=== PATIENT | male | born 1980 | race Caucasian/White ===

== ENCOUNTER 2019-09-16 15:41 | Emergency (ER) | payer BC ==
[2019-09-16 15:47] VITALS: BP 150/91
--- NOTE | 2019-09-16 16:08 | ED Physician Documentation ---
History of Present Illness - Stated complaint Stated Complaint: LT THUMB LAC - Chief complaint Chief Complaint: Laceration - History obtained from History obtained from: Patient - History of Present Illness Timing: Today Pain level max: 2 Pain level now: 1 Improved by: pressure Worsened by: moving - Additonal information Additional information: L thumb lac at home while making food. cut with knife. Td UTD. Patient is right- handed. Review of Systems Constitutional: denies: Fever Neurologic: denies: Focal weakness PD PAST MEDICAL HISTORY - Past Medical History Past Medical History: No - Past Surgical History Past Surgical History: No - Present Medications Home Medications: Ambulatory Orders Medication Instructions Recorded Confirmed No Known Home Medications 09/16/19 09/16/19 - Allergies Allergies/Adverse Reactions: Allergies Allergy/AdvReac Type Severity Reaction Status Date / Time No Known Drug Allergies Allergy Verified 09/16/19 15:46 - Living Situation Living Arrangement: reports: At home - Social History Does the pt have substance abuse?: No - Family History Family history: reports: Non contributory - Immunizations Immunizations are current?: No Immunizations: TDAP >10years/unknown PD ED PE NORMAL - Vitals Vital signs reviewed: Yes - General General: Alert and oriented X 3, No acute distress - Derm Derm: Warm and dry - Neuro Neuro: Alert and oriented X 3 PD ED PE EXPANDED - Extremities ANGELA UE/Hands Visual: 1 - laceration (1.5 cm, linear, no nail injury. NVI) Results - Vitals Vitals: Vital Signs - 24 hr 09/16/19 15:44 Temperature 36.6 C Heart Rate 84 Respiratory 16 Rate Blood Pressure 150/91 H O2 Saturation 98 Oxygen O2 Source Room air Procedures - Laceration (location) L thumb laceration Length in cm: 1.5 Wound type: Linear, Into subcut fat, Clean Neurovascular status: Sensory intact, Motor intact, Vascular intact Tendon involvement: Tendon intact Wound Preparation: Irrigated copiously NS, Wound explored, To the base Skin layer closure: Dermabond, Other (T Ring Kit) Other: Patient tolerated well, No complications, Neurovascular intact, Dressing applied (foam splint), Tetanus booster given (tdap) Complexity: Simple PD MEDICAL DECISION MAKING - ED course Complexity details: reviewed results, re-evaluated patient, considered differential, d/w patient ED course: 39-year-old male with a left thumb laceration. Repaired with the t-ring kit and Dermabond applied. No bleeding. Warnings of infection and instructions on wound care given at bedside. Also counseled on how to minimize scarring. Patient counseled regarding signs and symptoms for which I believe and urgent re-evaluation would be necessary. Patient with good understanding of and agreement to plan and is comfortable going home at this time This document was made in part using voice recognition software. While efforts a re made to proofread this document, sound alike and grammatical errors may occur. Tdap given Departure - Departure Disposition: 01 Home, Self Care Clinical Impression: Laceration of thumb, left Qualifiers: Encounter type: initial encounter Damage to nail status: without damage Foreign body presence: without foreign body Qualified Code(s): S61.012A - Laceration without foreign body of left thumb without damage to nail, initial encounter Condition: Good Instructions: ED Laceration Hand Follow-Up: your,doctor in 1 week for wound check [Other] Comments: Return if you worsen. Keep the wound clean. Do not apply ointments as this may dissolve the glue. Return if you notice redness, swelling or drainage from the wound Discharge Date/Time: 09/16/19 16:19
[2019-09-16] MEDS ORDERED: TETANUS/DIPHTHERIA/PERTUSSIS 0.5 ML SYRINGE IM ONE (16:10)
== END 2019-09-16 16:19 | disposition home or self-care (01) ==
LOC: ED 15:41
DX: S61.012A Laceration without foreign body of left thumb without damage to nail, initial encounter (principal); W26.0XXA Contact with knife, initial encounter; Y93.G1 Activity, food preparation and clean up; Y92.009 Unspecified place in unspecified non-institutional (private) residence as the place of occurrence of the external cause; Z23 Encounter for immunization
CPT/HCPCS: 12001; 90471